=== PATIENT | female | born 1940 | race Caucasian/White ===

== ENCOUNTER 2017-04-13 18:05 | Emergency (ER) | payer OTHER ==
[~2017-04-13] VITALS: Ht 162.6 cm; Wt 97.1 kg
--- NOTE | ~2017-04-13 | CT71 ---
[facility] A Service of [facility] RADIOLOGY TEXT RESULTS PATIENT: LINN CALDERÓN LOCATION: [facility] : 42 UNIT #: [id number] AGE: [address]: Joyce Jones MD SEX: F ORDER DR: [id number] [facility] [address] [place], [place] [address] [id number] E MR#: [id number] Acc #: [id number] NAME: LINN CALDERÓN. : 1940 SEX: F STUDY DATE/TIME: 04/13/2017 19:01 UNIT: [facility] ROOM: STUDY DESCRIPTION: CT Head Wo Contrast Attending Physician: Joyce Jones M.D. Ordering Physician: Joyce Jones M.D. Primary Care Physician: Edgard Benítez M.D. MEDICAL IMAGING REPORT This report is preliminary unless electronic signature is present EXAM CT head. INDICATION Trauma. Fall in [employer]. Near-syncope. Left-sided forehead and head pain. Headache. TECHNIQUE CT of the head without contrast. This CT exam was performed with one or more of the following radiation dose reduction techniques: automatic exposure control, adjustment of mA and/or kV according to patient size, and iterative reconstruction. COMPARISON CT head, 10/24/2016. FINDINGS There is no acute intracranial hemorrhage, mass lesion, or acute infarct. There are small areas encephalomalacia in the left frontal lobe and left parietal lobe, indicative of prior infarcts. The ventricles and basilar cisterns are normal in size and configuration. No extraaxial collections. No acute osseous abnormalities. Visualized paranasal sinuses and mastoid air cells are clear. There is a large scalp hematoma overlying the left frontal convexity and left orbit. IMPRESSION 1. No acute intracranial findings. 2. 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 3. Large scalp hematoma over the left frontal convexity and left orbit. [facility] A Service [facility] RADIOLOGY TEXT RESULTS PATIENT: LINN CALDERÓN LOCATION: [facility] : 42 UNIT #: [id number] AGE: [address]: Joyce Jones MD SEX: F ORDER DR: Dictated by... Jan Kay M.D. THIS IS AN ELECTRONICALLY VERIFIED REPORT Jan Kay M.D. at 04/14/2017 3:10 PM BRODY/[place]o TD: 04/13/2017 21:51 JOB #: [id number] MEDICAL IMAGING REPORT Page 1 of 1 COPY
--- NOTE | ~2017-04-13 | CT101 ---
[facility] A Service [facility] RADIOLOGY TEXT RESULTS PATIENT: LINN CALDERÓN LOCATION: [facility] : 41 UNIT #: [id number] AGE: [address]: Joyce Jones MD SEX: F ORDER DR: [id number] [facility] [address] [place], [place] [address] [id number] E MR#: [id number] Acc #: [id number] NAME: LINN CALDERÓN. : 1940 SEX: F STUDY DATE/TIME: 04/13/2017 19:01 UNIT: [facility] ROOM: STUDY DESCRIPTION: CT Maxillofacial Area Wo Cont Attending Physician: Joyce Jones M.D. Ordering Physician: Joyce Jones M.D. Primary Care Physician: Edgard Benítez M.D. MEDICAL IMAGING REPORT This report is preliminary unless electronic signature is present EXAM Maxillofacial CT INDICATIONS Fall. Facial pain. Left-sided facial swelling and headache. TECHNIQUE Maxillofacial CT without contrast. Coronal and sagittal reconstructions were obtained. This CT exam was performed with one or more of the following radiation dose reduction techniques: automatic exposure control, adjustment of mA and/or kV according to patient size, and iterative reconstruction. COMPARISON Maxillofacial CT 08/25/2016. FINDINGS There is extensive soft tissue swelling and hematoma overlying the left frontal convexity and left orbit. No facial fractures. Mandible is normal. Temporomandibular joints are within normal limits. 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 The orbits are normal. No postseptal hematoma. IMPRESSION 1. Large soft tissue hematoma over the left frontal convexity and left orbit. 2. No fractures. No postseptal orbital hematoma. Dictated by... Jan Kay M.D. [facility] A Service [facility] RADIOLOGY TEXT RESULTS PATIENT: LINN CALDERÓN LOCATION: [facility] : 41 UNIT #: [id number] AGE: [address]: Joyce Jones MD SEX: F ORDER DR: THIS IS AN ELECTRONICALLY VERIFIED REPORT Jan Kay M.D. at 04/14/2017 3:10 PM BRODY/[place] TD: 04/13/2017 22:14 JOB #: [id number] MEDICAL IMAGING REPORT Page 1 of 1 COPY
[~2017-04-13 18:05] MED LIST: AMARYL PO; AMARYL2 MG PO; ASPIRIN PO; ASPIRIN81 M2 PO; AUGMENTIN PO; AVALIDE 300-251 TAB PO; AVAPRO300 M1 PO; BIOTIN10000 MC1; BRILINTA90 MG PO; FUROSEMIDE40 MG PO; GLUCOPHAGE XR500 MG PO; GLUCOTROL PO; JANUVIA50 MG PO; LEVEMIR; LEVEMIR SUBQ; LEVEMIR100 UNITS/ SUBQ; LEVOTHYROXINE75 MCG PO; LIPITOR PO; LIPITOR40 MG PO; MEGA BIOTIN10000 MCG PO; METOPROLOL SUCC25 MG PO; NORVASC PO; NOVOLOG100 U/M2; PACERONE PO
== END 2017-04-13 20:50 | disposition home or self-care (01) ==
LOC: CED 18:05
DX: S09.90XA Unspecified injury of head, initial encounter (principal); I10 Essential (primary) hypertension; I25.10 Atherosclerotic heart disease of native coronary artery without angina pectoris; E11.9 Type 2 diabetes mellitus without complications; I25.2 Old myocardial infarction; Z79.82 Long term (current) use of aspirin; Z79.899 Other long term (current) drug therapy; Z88.2 Allergy status to sulfonamides
CPT/HCPCS: 70450; 70486; 90471; 90715; 99284

== ENCOUNTER 2017-04-30 12:55 | Emergency (ER) | payer OTHER ==
[~2017-04-30] VITALS: Ht 162.6 cm; Wt 97.5 kg
[2017-04-30 13:40] LABS: BASOPHIL% 0.4 % (0-2.5); EOSINOPHIL# 0.1 X10e3 (0-0.7); EOSINOPHIL% 0.6 % (0.0-7.0); HEMATOCRIT 38.1 % (35.0-45.0); HEMOGLOBIN 12.5 gm/dL (12.0-16.0); LYMPHOCYTE# 0.5 X10e3 (1.0-3.5); LYMPHOCYTE% 6.5 % (17.0-45.0); MEAN CELL VOLUME 88.4 FL (83-96); MEAN CORPUSCULAR HEMOGLOBIN 28.9 PG (28-34); MEAN CORPUSCULAR HGB CONC 32.8 g/dL (30-36); MEAN PLATELET VOLUME 9.1 FL (6.5-11.5); MONOCYTE# 0.6 X10e3 (0-1.0); MONOCYTE% 7.5 % (3.0-12.0); NEUTROPHIL# 6.8 X10e3 (1.5-7.1); PLATELET COUNT 194 X10e3 (140-420); RED BLOOD COUNT 4.31 X10e (3.90-5.30); RED CELL DISTRIBUTION WIDTH 15.5 % (11.0-15.5)
[2017-04-30 13:44] LABS: DIFF IND NO
[2017-04-30 13:53] LABS: BUN/CREATININE RATIO 26.92; CALCIUM SERUM 8.1 mg/dL (8.4-10.2); CREATININE SERUM 1.3 mg/dL (0.6-1.4); GLOM FILT RATE Estimated 40.1 mL/min (>60); POTASSIUM 4.5 mmol/L (3.5-5.1)
== END 2017-04-30 14:46 | disposition home or self-care (01) ==
LOC: CED 12:55
PROVIDERS: Emergency Medicine
DX: L03.116 Cellulitis of left lower limb (principal); I10 Essential (primary) hypertension; I25.10 Atherosclerotic heart disease of native coronary artery without angina pectoris; E11.65 Type 2 diabetes mellitus with hyperglycemia; F17.210 Nicotine dependence, cigarettes, uncomplicated; Z88.2 Allergy status to sulfonamides
CPT/HCPCS: 36415; 80048; 85025; 99283

== ENCOUNTER → 2017-06-01 | Outpatient (CLI) | payer OTHER ==
[2017-06-01 14:23] LABS: BASOPHIL% 0.4 % (0-2.5); EOSINOPHIL# 0.2 X10e3 (0-0.7); EOSINOPHIL% 2.1 % (0.0-7.0); HEMATOCRIT 41.8 % (35.0-45.0); HEMOGLOBIN 13.3 gm/dL (12.0-16.0); LYMPHOCYTE# 0.6 X10e3 (1.0-3.5); LYMPHOCYTE% 6.9 % (17.0-45.0); MEAN CORPUSCULAR HEMOGLOBIN 28.3 PG (28-34); MEAN CORPUSCULAR HGB CONC 31.8 g/dL (30-36); MEAN PLATELET VOLUME 8.9 FL (6.5-11.5); MONOCYTE# 0.8 X10e3 (0-1.0); MONOCYTE% 8.5 % (3.0-12.0); NEUTROPHIL# 7.4 X10e3 (1.5-7.1); NEUTROPHIL% 82.1 % (40-75); PLATELET COUNT 197 X10e3 (140-420); RED BLOOD COUNT 4.69 X10e (3.90-5.30); RED CELL DISTRIBUTION WIDTH 14.7 % (11.0-15.5)
[2017-06-01 14:24] LABS: DIFF IND NO
[2017-06-01 14:26] LABS: URINE APPEARANCE CLOUDY; URINE BILIRUBIN NEG (NEG); URINE BLOOD NEG (NEG); URINE COLOR YELLOW; URINE GLUCOSE 250 MG/DL (NEG); URINE KETONE NEG (NEG); URINE LEUKOCYTE ESTERASE 1+ (NEG); URINE NITRATE POS (NEG); URINE PROTEIN 1+ (NEG); URINE SPECIFIC GRAVITY 1.018 (1.003-1.035); URINE UROBILINOGEN 0.2 MG/DL (NEG)
[2017-06-01 14:28] LABS: U HYALINE CASTS AUWI 0-2 /[LPF]; URINE BACTERIA AUWI 4+ (NEGATIVE); URINE SQUAMOUS EPITHELIAL CELL OCC /[HPF]
[2017-06-01 14:30] LABS: URINE SOURCE CLEAN CATCH
[2017-06-01 14:58] LABS: CREATININE,RANDOM URINE 121 mg/dL; TOTAL PROTEIN,RANDOM URINE 33 mg/dl (<10)
[2017-06-01 15:06] LABS: ALBUMIN SERUM 3.5 g/dL (3.5-5.0); BILIRUBIN,TOTAL 0.6 mg/dL (0.2-2.0); BUN/CREATININE RATIO 23.07; CREATININE SERUM 1.3 mg/dL (0.6-1.4); GLOM FILT RATE Estimated 39.8 mL/min (>60); POTASSIUM 5.4 mmol/L (3.5-5.1); PROTEIN TOTAL SERUM 6.2 g/dL (6.0-8.3)
== END | disposition home or self-care (01) ==
LOC: CLAB 12:10
PROVIDERS: Internal Medicine Nephrology
DX: N18.3 Chronic kidney disease, stage 3 (moderate) (principal)
CPT/HCPCS: 36415; 80053; 81003; 82570; 84156; 85025